=== PATIENT | male | born 1985 | race Two or more races ===

== ENCOUNTER 2023-07-03 17:06 | Emergency (ER) | payer OTHER ==
[~2023-07-03] VITALS: Ht 165.1 cm; Wt 108.9 kg
[2023-07-03 17:20] VITALS: BP 157/86; PULSE 86; RESP 17; TEMP 97.7; O2SAT 98
[2023-07-03] MEDS ORDERED: DEXAMETHASONE 10 MG/ML VIAL IM ONE (18:25)
[2023-07-03] MEDS ORDERED: BENZ-300 PO (18:41)
[2023-07-03 19:10] VITALS: BP 122/86; PULSE 86; RESP 17; TEMP 97.7; O2SAT 99
== END 2023-07-03 19:10 | disposition home or self-care (01) ==
LOC: MED 17:06
DX: J03.90 Acute tonsillitis, unspecified (principal); Z79.899 Other long term (current) drug therapy
CPT/HCPCS: 87081; 96372; 99283; J1100